=== PATIENT | female | born 1965 | race Caucasian/White ===

== ENCOUNTER 2020-01-12 01:21 | Outpatient (CLI) | payer OTHER, SELFPAY ==
[2020-01-12 17:41] LABS: SARS-CoV-2 RNA PCR Negative
== END 2020-01-12 01:22 | disposition home or self-care (01) ==
LOC: ANHCOVIDDT 01:22
PROVIDERS: Visit Provider Orthopaedic Surgery
DX: Z01.812 Encounter for preprocedural laboratory examination (principal); Z20.828 Contact with and (suspected) exposure to other viral communicable diseases
CPT/HCPCS: 87635; C9803; U0003

== ENCOUNTER 2020-01-12 08:17 | Outpatient (CLI) | payer OTHER, SELFPAY ==
[2020-01-12 09:44] LABS: Anion Gap 6 mmol/L (8-16); Blood Urea Nitrogen 23 mg/dL (7-17); Calcium 9.5 mg/dL (8.4-10.2); Carbon Dioxide 33 mmol/L (22-30); Chloride 102 mmol/L (98-107); Estimated Glomerular Filt Rate > 60; Glucose 96 mg/dL (65-105); Potassium 4.2 mmol/L (3.4-5.0); Sodium 141 mmol/L (137-145)
== END 2020-01-12 08:18 | disposition home or self-care (01) ==
PROVIDERS: Anesthesiology; Visit Provider Orthopaedic Surgery
DX: I10 Essential (primary) hypertension (principal); Z01.812 Encounter for preprocedural laboratory examination
CPT/HCPCS: 36415; 80048; 87635; C9803; U0003

== ENCOUNTER 2020-01-14 02:50 | Day surgery (SDC) | payer OTHER, SELFPAY ==
--- NOTE | 2020-01-09 14:31 | PM.IMHP ---
H&P: HPI History of Present Illness Date/Time: 01/09/20 14:31 Chief complaint: Right Rotator Cuff Tear Narrative: Jerri Joseph is a 54 year old female Who presents with a chronic ongoing history of right shoulder pain. She has pain with overhead type motion worse with activity somewhat relieved by rest. The pain in the shoulder radiates into the upper arm. The patient states she can not do anything heavy repetitive with the shoulder. The pain throbs and aches and keeps her awake at night. Despite conservative measures on her own at home and also through treatment with Dr. Irene including cortisone therapy and anti-inflammatories and activity modification her symptoms continue. a CT arthrogram was done, this shows some AC joint separation. She also has supraspinatus tendinosis, bursal sided fraying as well as in insertional fissuring with articular sided fraying. There appears to be a full-thickness tear of the supraspinatus with proximal intrasubstance tearing and delamination extension. The biceps tendon long head appears to be intact. No other fracture lesion mass is seen. Previous x-rays show also showed prominent acromion likely causing impingement. At this point the patient is where the above findings and discuss further treatment options in detail with Dr. Irene she notes to proceed with surgical intervention. Review of Systems Review of Systems: All systems reviewed & are unremarkable except as noted in HPI and below PMFSH Social History Social History Smoking status: Never smoker Gender identity (if verbalized by the patient): Female Spiritual care concerns: No Meds Home Medications and Allergies Home Medications Medication Instructions Recorded Confirmed Type acyclovir 400 mg PO BID 12/31/19 12/31/19 History apixaban [Eliquis] 5 mg PO BID 12/31/19 12/31/19 History flecainide 50 mg PO BID 12/31/19 12/31/19 History hydrocodone-acetaminophen 1 tablet PO PRN PRN 12/31/19 12/31/19 History metoprolol tartrate 150 mg PO BID 12/31/19 12/31/19 History triamterene-hydrochlorothiazid 1 cap PO DAILY 12/31/19 12/31/19 History Allergies Allergy/AdvReac Type Severity Reaction Status Date / Time diltiazem Allergy Severe ANKLE Verified 12/31/19 15:48 SWELLING gabapentin Allergy Severe SWELLING, Verified 12/31/19 15:48 RASH Penicillins Allergy Severe RASH Verified 12/31/19 15:48 allopurinol Allergy Intermediate RASH Unverified 12/31/19 15:48 amlodipine Allergy Intermediate SWELLING Verified 12/31/19 15:48 OF LEGS AND FEET UNABLE TO WALK prochlorperazine Allergy Intermediate ABNORMAL Unverified 12/31/19 15:48 MOVEMENT OF FACIAL MUSCLES AND TONGUE STERLING Inhibitors Allergy Mild CRAMPING Verified 12/31/19 15:48 adhesive Allergy Mild REDMESS Verified 12/31/19 15:48 AND RASH oxycodone Allergy Mild SEVERE ITCH Unverified 12/31/19 15:48 Exam Narrative: Exam Narrative: The patient is well-developed well-nourished female no acute distress. She is alert and oriented x3. Normal mood and affect. Hearing and vision intact. HEENT exam within normal limits. Heart regular rate rhythm. Respiratory is good no distress. Pulse regular rate rhythm. Abdomen benign. Extremities showed the patient's right shoulder to be painful with manipulation range of motion. She has pain with overhead type motion with positive impingement sign. Rotator cuff strength testing reproduces her symptoms as well. She has painful giving way with rotator cuff strength testing weakness with external rotation and abduction as well. She has full active and passive motion. Shoulder joint is otherwise stable. She has full painless neck motion. Skin is intact without rashes or lesions. CT arthrogram is as above. Central nervous system exam within normal limits. Assessment and Plan Additional Plan By CT and exam the patient is note
--- NOTE | 2020-01-13 13:27 | WPDANESEPPF ---
Anes - Initial Pre Proc Eval Procedure: Operation Date: 01/14/20 09:30 Proposed Procedures p Right Shoulder Arthroscopy, Acromioplasty, Open Distal Clavicle Excision, Rotator Cuff Repair, Proceed As Indicated - Benji Irene MD Date/Time: 01/13/20 13:27 Surgeon: Benji Irene MD Pre Op Diagnosis: Right Rotator Cuff Tear Patient Data Age: 54 Gender: F Height: Weight: Allergies Allergy/AdvReac Type Severity Reaction Status Date / Time diltiazem Allergy Severe ANKLE Verified 01/14/20 07:37 SWELLING gabapentin Allergy Severe SWELLING, Verified 01/14/20 07:37 RASH Penicillins Allergy Severe RASH Verified 01/14/20 07:37 allopurinol Allergy Intermediate RASH Verified 01/14/20 07:37 amlodipine Allergy Intermediate SWELLING Verified 01/14/20 07:37 OF LEGS AND FEET UNABLE TO WALK prochlorperazine Allergy Intermediate ABNORMAL Verified 01/14/20 07:37 MOVEMENT OF FACIAL MUSCLES AND TONGUE STERLING Inhibitors Allergy Mild CRAMPING Verified 01/14/20 07:37 adhesive Allergy Mild REDMESS Verified 01/14/20 07:37 AND RASH oxycodone Allergy Mild SEVERE ITCH Verified 01/14/20 07:37 Home Medications Medication Instructions Recorded Confirmed Type acyclovir 400 mg PO BID 12/31/19 01/14/20 History apixaban [Eliquis] 5 mg PO BID 12/31/19 12/31/19 History flecainide 50 mg PO BID 12/31/19 12/31/19 History hydrocodone-acetaminophen 1 tablet PO PRN PRN 12/31/19 01/14/20 History metoprolol tartrate 150 mg PO BID 12/31/19 12/31/19 History triamterene-hydrochlorothiazid 1 cap PO DAILY 12/31/19 12/31/19 History Patient hx anesthesia problems: none Family hx anesthesia problems: none PMFSH Past Medical History Medical History (Updated 01/14/20 @ 07:56 by Abdi Epperson MD) Atrial fibrillation ablation 02/2019 HTN (hypertension) Obesity Pacemaker Social History Social History Smoking status: Never smoker Living arrangements: with family Gender identity (if verbalized by the patient): Female Spiritual care concerns: No Anes - Eval Final PreProcedure Day of Procedure 01/13/20 13:27 Patient weight: obese Heart: regular rate and rhythm Lungs: clear to auscultation and normal air movement Airway: Mallampati scale class II Neurological: alert and oriented Last oral intake: >/= 8 hours ASA classification: III Emergent: no Anesthetic plan: proceed Anesthesia type and monitoring: general ETT Informed Consent: The patient's anesthetic plan and its attendant risks and benefits were discussed with the patient/family/POA. Questions were solicited and answers provided to the satisfaction of the patient/family/POA.
[2020-01-14] VITALS (9 sets, daily range): BP systolic 111–149; BP diastolic 44–76; PULSE 59–76; RESP 13–16; TEMP 36.2–36.6; O2SAT 93–100; BMI 36.6
--- NOTE | 2020-01-14 08:00 | WPDANESPNB ---
Anes - Peripheral Nerve Block Date/Time: 01/14/20 08:00 I have discussed with the patient/family/POA the placement of a peripheral nerve block for post-operative pain management, including associated risks, benefits, complications, and side effects. Alternative methods of post-operative analgesia were detailed. Questions were solicited and answers provided to the satisfaction of the patient/family/POA. Time-Out: A pre-procedural Time-Out was completed immediately before starting the procedure and confirmed: Patient Identification, Site, Procedure, Patient Position and the Availability of Requisite Equipment. Clinical Indications: Acute post-operative pain management requested by the operative surgeon. Nerve Block Insertion Note Anes-nerve block: supraclavicular right Patient position: supine Skin prep: chlorhexidine Needle: 22 gauge, stimulating, insulated echogenic needle. Needle length: 80 mm Technique: ultrasound (in plane) Injectate: bupivacaine 0.5% with epi 5 mcg/ml (20cc) Observations: tolerated well Complications: none Procedure start time:: 825 Procedure end time:: 830
[2020-01-14] MEDS: ACETAMINOPHEN 500 MG TABLET 1000 MG PO (08:16)
[2020-01-14] MEDS: SCOPOLAMINE 1.5 MG PATCH TRANSDERM (08:18)
[2020-01-14] MEDS: LACTATED RINGERS 1,000 ML 30 ML IV CONT ×2 (08:20→10:35)
[2020-01-14] MEDS: KETOROLAC 15 MG/ML VIAL (*BKC) IV PUSH (08:21)
--- NOTE | 2020-01-14 08:32 | SUR.PREOP ---
DR JACKMAN PERFORMING NERVE BLOCK
--- NOTE | 2020-01-14 08:34 | WPDHPUPDATE1 ---
History and Physical Update Update Date/Time: 01/14/20 08:34 History and Physical has been reviewed, including an updated exam of the patient. There are NO changes in the patient's condition. Risks, benefits, and alternatives have been discussed and questions answered. Patient agrees to proceed with procedure.
--- NOTE | 2020-01-14 08:46 | SUR.PREOP ---
PER DR JAVIER VERBAL ORDER, MAY RESUME ELIQUIS TONIGHT.
[2020-01-14] MEDS: ceFAZolin 2 GM/D5W 50 ML 2 GM/50 ML BAG IVPB (09:21)
[2020-01-14] MEDS: LIDO 1%/EPINEPHRINE 1:100,000 20 ML VIAL INFILTRATE (09:52)
--- NOTE | 2020-01-14 10:16 | PM.PROC ---
Procedure Note - Detailed Date of procedure: 01/14/20 Pre-op diagnosis: Right Rotator Cuff Tear Post-op diagnosis: same Anesthesia: GETA Surgeon: Benji Irene MD Patient brought to operating room 7. General anesthetic was administered placed in the beach chair position sterilely prepped and in usual manner the old incision was reopened dissection as arthroscopy performed the biceps looked intact she had tearing of the supraspinatus watershed area but not horrible the joint showed some slight fraying but not too bad them into the subacromial space and transverse was encountered was removed with the shaver shaver and I did gently debride the acromion in order to be appear to be any impingement from the distal clavicle which was previously removed. a longitudinal incision made then using the old scar shoes very obese dissection carried down to the fascia Sherine knee opened the acromion gently rasped and a small tear was found supraspinatus area displayed revision repair with 2. Ethibond suture removal rotator cuff was checked both forward backwards anterior and posterior to make sure there was no further tearing this was repaired with 2. Ethibond the deltoid was repaired to itself the acromion in the trapezius 2. Ethibond and closed with 2 Vicryl loy sterile dressing applied patient tolerated procedure well. Model [employer] Person: Andrew Kinney Estimated blood loss (mL): 50 Drains: No Packing: No Pathology: none sent Complications: No immediate complications Condition: stable Disposition: PACU
--- NOTE | 2020-01-14 13:46 | SUR.PHASEII ---
PT RT ARM IS NUMB, GIANA DIAZ HELPED GET DRESSED.
== END 2020-01-14 12:50 | disposition home or self-care (01) ==
PROVIDERS: PCP Preventive Medicine Obesity Medicine; Visit Provider Orthopaedic Surgery
PROC: (CPT 29805; principal; 2020-01-14 09:30)
DX: M75.101 Unspecified rotator cuff tear or rupture of right shoulder, not specified as traumatic (principal); G89.18 Other acute postprocedural pain; I48.91 Unspecified atrial fibrillation; I10 Essential (primary) hypertension; Z95.0 Presence of cardiac pacemaker; E66.9 Obesity, unspecified; Z68.36 Body mass index [BMI] 36.0-36.9, adult
CPT/HCPCS: 23412; 64415; A4565; A9270; J0690; J1100; J1885; J2250; J2370; J2405; J2704; J2710; J3010; J7120